=== PATIENT | female | born 1955 | race American Indian/Alaskan Native ===

== ENCOUNTER 2020-02-11 11:34 | Emergency (ER) | payer OTHER ==
[2020-02-11 12:21] LABS: Basophils # (Auto) 0.1 K/mm3 (0.0-0.1); Eosinophils # (Auto) 0.1 K/mm3 (0.0-0.4); Eosinophils % (Auto) 2.2 % (0.0-4.3); Hematocrit 42.4 % (30.3-42.9); Hemoglobin 13.9 gm/dl (10.1-14.3); Lymphocytes # (Auto) 2.2 K/mm3 (1.2-5.4); Lymphocytes % (Auto) 35.6 % (13.4-35.0); Mean Corpuscular HGB Conc 33 % (30-34); Mean Corpuscular Volume 73 fl (79-97); Monocytes # (Auto) 0.4 K/mm3 (0.0-0.8); Monocytes % (Auto) 6.6 % (0.0-7.3); Platelet Count 232 K/mm3 (140-440); Red Blood Count 5.79 M/mm3 (3.65-5.03); Red Cell Distribution Width 14.7 % (13.2-15.2)
[2020-02-11 12:23] LABS: Bilirubin,Urine NEG (Negative); Blood,Urine NEG (Negative); Color,Urine Yellow (Yellow); Mucus,Urine FEW /HPF; Protein,Urine <15 mg/dL mg/dL (Negative); Urobilinogen,Urine < 2.0 mg/dL (<2.0); WBC,Urine < 1.0 /HPF (0.0-6.0)
[2020-02-11 12:43] LABS: Alanine Aminotransferase 20 units/L (7-56); Albumin 4.3 g/dL (3.9-5); BUN/Creatinine Ratio 19; Blood Urea Nitrogen 13 mg/dL (7-17); Calcium 9.3 mg/dL (8.4-10.2); Hemolysis Index 13
[2020-02-11] MEDS ORDERED: METOCLOPRAMIDE 10 MG/2 ML INJ IV ONE ×2 (13:57→16:04)
[2020-02-11] MEDS ORDERED: SODIUM CHLORIDE 0.9% 1000 ML 1,000 ML IV ONE ×2 (13:57→16:17)
[2020-02-11] MEDS ORDERED: FAMOTIDINE 20 MG/2 ML INJ IV ONE (13:57)
[2020-02-11] MEDS ORDERED: DICYCLOMINE 10 MG/5 ML ORAL LIQD PO ONE (15:00)
--- NOTE | 2020-02-11 15:24 | Emergency Department Report ---
ED Abdominal Pain HPI - General Chief Complaint: Abdominal Pain Stated Complaint: STOMACH PAIN PUI?: No Time Seen by Provider: 02/11/20 13:32 Source: patient Mode of arrival: Ambulatory Limitations: No Limitations - History of Present Illness Initial Comments: This is a 64-year-old female with a history of GERD and gastric ulcers who presents the ED complaining of abdominal pain for the past 2 months. Patient states she was seen at [place] about 2 months ago and was being treated for ulcers. Patient states that she does not feel like she is better since then. Patient states that abdominal pain is upper and not radiating elsewhere. She denies fever, chills, shortness of breath, chest pain, diarrhea or constipation. MD Complaint: abdominal pain - Related Data Previous Rx's Medication Instructions Recorded Last Taken Type Ciprofloxacin [Ciprofloxacin ORAL 500 mg PO Q12H #20 ml 08/30/16 Unknown Rx LIQ] Fluconazole (Nf) [Diflucan TAB] 150 mg PO ONCE #1 tablet 08/30/16 Unknown Rx Dicyclomine [Bentyl] 20 mg PO TID #30 tablet 02/11/20 Unknown Rx Famotidine [Pepcid] 20 mg PO BID #30 tablet 02/11/20 Unknown Rx Allergies Allergy/AdvReac Type Severity Reaction Status Date / Time No Known Allergies Allergy Verified 08/30/16 01:53 ED Review of Systems ROS: Stated complaint: STOMACH PAIN Other details as noted in HPI Comment: All other systems reviewed and negative ED Past Medical Hx - Past Medical History Previous Medical History?: Yes Hx Hypertension: Yes Hx Diabetes: Yes Additional medical history: UTI - Social History Smoking Status: Never Smoker Substance Use Type: Marijuana - Medications Home Medications: Home Medications Medication Instructions Recorded Confirmed Last Taken Type Ciprofloxacin [Ciprofloxacin ORAL 500 mg PO Q12H #20 ml 08/30/16 Unknown Rx LIQ] Fluconazole (Nf) [Diflucan TAB] 150 mg PO ONCE #1 tablet 08/30/16 Unknown Rx Dicyclomine [Bentyl] 20 mg PO TID #30 tablet 02/11/20 Unknown Rx Famotidine [Pepcid] 20 mg PO BID #30 tablet 02/11/20 Unknown Rx ED Physical Exam - General Limitations: No Limitations General appearance: alert, in no apparent distress - Head Head exam: Present: atraumatic, normocephalic - Eye Eye exam: Present: normal appearance - ENT ENT exam: Present: mucous membranes moist - Neck Neck exam: Present: normal inspection - Respiratory Respiratory exam: Present: normal lung sounds bilaterally. Absent: respiratory distress - Cardiovascular Cardiovascular Exam: Present: regular rate, normal rhythm. Absent: systolic murmur, diastolic murmur, rubs, gallop - GI/Abdominal GI/Abdominal exam: Present: soft, normal bowel sounds. Absent: distended, tenderness, guarding, rebound - Extremities Exam Extremities exam: Present: normal inspection - Back Exam Back exam: Present: normal inspection - Neurological Exam Neurological exam: Present: alert, oriented X3 - Psychiatric Psychiatric exam: Present: normal affect, normal mood - Skin Skin exam: Present: warm, dry, intact, normal color. Absent: rash ED Course Vital Signs 02/11/20 02/11/20 11:38 15:50 Temperature 97.7 F Pulse Rate 97 H 82 Respiratory 18 14 Rate Blood Pressure 167/106 Blood Pressure 158/93 [Right] O2 Sat by Pulse 96 99 Oximetry ED Medical Decision Making - Lab Data Result diagrams: 02/11/20 12:04 02/11/20 12:04 Laboratory Last Values WBC 6.3 K/mm3 (4.5-11.0) 02/11/20 12:04 RBC 5.79 M/mm3 (3.65-5.03) H 02/11/20 12:04 Hgb 13.9 gm/dl (10.1-14.3) 02/11/20 12:04 Hct 42.4 % (30.3-42.9) 02/11/20 12:04 MCV 73 fl (79-97) L 02/11/20 12:04 MCH 24 pg (28-32) L 02/11/20 12:04 MCHC 33 % (30-34) 02/11/20 12:04 RDW 14.7 % (13.2-15.2) 02/11/20 12:04 Plt Count 232 K/mm3 (140-440) 02/11/20 12:04 Lymph % (Auto) 35.6 % (13.4-35.0) H 02/11/20 12:04 [place] % (Auto) 6.6 % (0.0-7.3) 02/11/20 12:04 Eos % (Auto) 2.2 % (0.0-4.3) 02/11/20 12:04 Baso % (Auto) 1.0 % (0.0-1.8) 02/11/20 12:04 Lymph # 2.2 K/mm3 (1.2-5.4) 02/11/20 12:04 [place] # 0.4 K/mm3 (0.0-0.8) 02/11/20 12:04 Eos # 0.1 K/mm3 (0.0-0.4) 02/11/20 12:04 Baso # 0.1 K/mm3 (0.0-0.1) 02/11/20 12:04 Seg Neutrophils % 54.6 % (40.0-70.0) 02/11/20 12:04 Seg Neutrophils # 3.4 K/mm3 (1.8-7.7) 02/11/20 12:04 Sodium 136 mmol/L (137-145) L 02/11/20 12:04 Potassium 3.5 mmol/L (3.6-5.0) L 02/11/20 12:04 Chloride 96.9 mmol/L (98-107) L 02/11/20 12:04 Carbon Dioxide 26 mmol/L (22-30) 02/11/20 12:04 Anion Gap 17 mmol/L 02/11/20 12:04 BUN 13 mg/dL (7-17) 02/11/20 12:04 Creatinine 0.7 mg/dL (0.7-1.2) 02/11/20 12:04 Estimated GFR > 60 ml/min 02/11/20 12:04 BUN/Creatinine Ratio 19 % 02/11/20 12:04 Glucose 148 mg/dL (65-100) H 02/11/20 12:04 Calcium 9.3 mg/dL (8.4-10.2) 02/11/20 12:04 Total Bilirubin 0.30 mg/dL (0.1-1.2) 02/11/20 12:04 AST 18 units/L (5-40) 02/11/20 12:04 ALT 20 units/L (7-56) 02/11/20 12:04 Alkaline Phosphatase 79 units/L (35-129) 02/11/20 12:04 Total Protein 8.0 g/dL (6.3-8.2) 02/11/20 12:04 Albumin 4.3 g/dL (3.9-5) 02/11/20 12:04 Albumin/Globulin Ratio 1.2 % 02/11/20 12:04 Urine Color Yellow (Yellow) 02/11/20 12:06 Urine Turbidity Clear (Clear) 02/11/20 12:06 Urine pH 6.0 (5.0-7.0) 02/11/20 12:06 Ur Specific [place] 1.017 (1.003-1.030) 02/11/20 12:06 Urine Protein <15 mg/dl mg/dL (Negative) 02/11/20 12:06 Urine Glucose (UA) Neg mg/dL (Negative) 02/11/20 12:06 Urine Ketones Neg mg/dL (Negative) 02/11/20 12:06 Urine Blood Neg (Negative) 02/11/20 12:06 Urine Nitrite Neg (Negative) 02/11/20 12:06 Urine Bilirubin Neg (Negative) 02/11/20 12:06 Urine Urobilinogen < 2.0 mg/dL (<2.0) 02/11/20 12:06 Ur Leukocyte Esterase Neg (Negative) 02/11/20 12:06 Urine WBC (Auto) < 1.0 /HPF (0.0-6.0) 02/11/20 12:06 Urine RBC (Auto) 2.0 /HPF (0.0-6.0) 02/11/20 12:06 U Epithel Cells (Auto) 4.0 /HPF (0-13.0) 02/11/20 12:06 Urine Mucus Few /HPF 02/11/20 12:06 - Medical Decision Making This 64-year-old female who presents with abdominal pain secondary to gastritis. Patient received fluids and pain medicine in the ED. 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 All labs are within normal limits. Discussed all findings with the patient. Patient is in no acute or respiratory distress during ED stay. Discussed also follow-up with primary care physician. Vital signs are normal patient is in no acute distress. Critical care attestation.: If time is entered above; I have spent that time in minutes in the direct care of this critically ill patient, excluding procedure time. ED Disposition Clinical Impression: Gastritis, GERD (gastroesophageal reflux disease), Abdominal pain Disposition: - TO HOME OR SELFCARE Is pt being admited?: No Does the pt Need Aspirin: No Condition: Stable Instructions: Gastritis (ED), Gastroesophageal Reflux in Children (ED), Gastr oesophageal Reflux Disease (ED), Abdominal Pain (ED) Additional Instructions: Make sure to follow up with the primary care physician as discussed. Take all your medications as you've been prescribed. If you have any worsening symptoms or develop new symptoms please return to ED immediately. Prescriptions: Dicyclomine [Bentyl] 20 mg PO TID #30 tablet Famotidine [Pepcid] 20 mg PO BID #30 tablet Referrals: CHEPE FARAH MD [Primary Care Provider] - 3-5 Days [facility] [Provider Group] - 3-5 Days [facility] [Provider Group] - 3-5 Days Forms: Accompanied Note, Work/School Release Form(ED) Time of Disposition: 15:47
[2020-02-11 15:51] VITALS: BP 158/93
[2020-02-11] MEDS ORDERED: diphenhydrAMINE 50 MG/ML VIAL IV ONE (16:04)
[2020-02-12] MEDS ORDERED: PYRIDOXINE 50 MG TAB PO ONE (16:30)
== END 2020-02-11 16:47 | disposition home or self-care (01) ==
LOC: ED 11:34
DX: K21.9 Gastro-esophageal reflux disease without esophagitis (principal); K29.70 Gastritis, unspecified, without bleeding; I10 Essential (primary) hypertension; E11.9 Type 2 diabetes mellitus without complications; N39.0 Urinary tract infection, site not specified; F12.10 Cannabis abuse, uncomplicated; Z79.2 Long term (current) use of antibiotics; Z79.899 Other long term (current) drug therapy
CPT/HCPCS: 36415; 80053; 81001; 85025; 96361; 96374; 96375; 96376; 99283; J1200; J2765; J7030